=== PATIENT | male | born 1985 | race Caucasian/White ===

== ENCOUNTER 2017-03-08 13:08 | Emergency (ER) | payer SELFPAY ==
[~2017-03-08] VITALS: Ht 180.3 cm; Wt 105.0 kg
[2017-03-08 13:10] VITALS: BP 179/98; PULSE 118; RESP 28; TEMP 98.6; O2SAT 100
--- NOTE | 2017-03-08 13:31 | PD ---
HPI . back and flank pain since this morning (left side) since this am Chief Complaint: Flank/Kidney Pain Time Seen by Provider: 13:31 Travel History International Travel<30 days: No Contact w/Intl Traveler<30days: No Traveled to known affect area: No History of Present Illness HPI 31-year-old male with no past medical history other than tobaccoism here with complaints of left-sided back and flank pain since earlier this morning. Patient says all of a sudden he developed some intense 10/10 back pain. He admits to having some loose stools, but no other issues. He denies any urinary changes. He's never had kidney stones or any problems in the past. He denies any fever, but thinks he may have had some chills. He is accompanied by his significant other and child. PFSH Past Medical History Medical History: Denies Significant Hx Social History Tobacco Use: Yes Allergies-Medications (Allergen,Severity, Reaction): Coded Allergies: No Known Allergies (Unverified , 03/08/17) Reported Meds & Prescriptions Reported Meds & Active Scripts Active Zofran Odt (Ondansetron Odt) 8 Mg Tab 8 Mg SL Q12H PRN Flomax (Tamsulosin HCl) 0.4 Mg Cap 0.4 Mg PO HS Naprosyn (Naproxen) 500 Mg Tab 500 Mg PO BID Lortab (Hydrocodone-Acetaminophen) 5-325 Mg Tab 1 Tab PO Q6H PRN Review of Systems General / Constitutional: No: Fever Eyes: No: Visual changes HENT: No: Headaches Cardiovascular: No: Chest Pain or Discomfort Respiratory: No: Shortness of Breath Gastrointestinal: No: Abdominal Pain Genitourinary: No: Dysuria Musculoskeletal: No: Pain Skin: No Rash Neurologic: No: Weakness Psychiatric: No: Depression Endocrine: No: Polydipsia Hematologic/Lymphatic: No: Easy Bruising Physical Exam Narrative GENERAL: AAO x 3, no acute distress, Well-nourished, well-developed patient. SKIN: Warm and dry. No visible rashes or bruising. HEAD: Normocephalic and atraumatic. EYES: No scleral icterus. No injection or drainage. EOM intact, NECK: Supple, trachea midline. No JVD. CARDIOVASCULAR: Regular rate and rhythm without murmurs, gallops, or rubs. RESPIRATORY: Breath sounds equal bilaterally. No accessory muscle use. No rhonchi or rales. GASTROINTESTINAL: Abdomen soft, non-tender, nondistended. No rebound or guarding EXTREMITIES: No cyanosis or edema. BACK: ++ cva tenderness to left side NEURO: CN II-12 intact, database consultant strength normal b/l, UE and LE 5/5, no focal deficits PSYCH: AAO x 3, normal affect. Data Data Last Documented VS Vital Signs Date Time Temp Pulse Resp B/P Pulse Ox O2 Delivery O2 Flow Rate FiO2 03/08/17 13:53 97 Room Air 03/08/17 13:10 98.6 118 28 179/98 Orders Complete Blood Count With Diff (03/08/17 13:34) Comprehensive Metabolic Panel (03/08/17 13:34) Lipase (03/08/17 13:34) Urinalysis - C+S If Indicated (03/08/17 13:34) Ct Abd/Pel W/O Iv Contrast (03/08/17 13:34) Iv Access Insert/Monitor (03/08/17 13:34) Ecg Monitoring (03/08/17 13:34) Oximetry (03/08/17 13:34) Morphine Inj (Morphine Inj) (03/08/17 13:45) Ondansetron Inj (Zofran Inj) (03/08/17 13:45) Sodium Chloride 0.9% Flush (Ns Flush) (03/08/17 13:45) Electrocardiogram (03/08/17 13:34) Ketorolac Inj (Toradol Inj) (03/08/17 13:45) Labs Laboratory Tests Test 03/08/17 13:45 White Blood Count 10.7 TH/MM3 Red Blood Count 5.14 MIL/MM3 Hemoglobin 16.5 GM/DL Hematocrit 48.3 % Mean Corpuscular Volume 93.9 FL Mean Corpuscular Hemoglobin 32.1 PG Mean Corpuscular Hemoglobin 34.2 % Concent Red Cell Distribution Width 12.7 % Platelet Count 272 TH/MM3 Mean Platelet Volume 7.7 FL Neutrophils (%) (Auto) 82.0 % Lymphocytes (%) (Auto) 10.6 % Monocytes (%) (Auto) 6.6 % Eosinophils (%) (Auto) 0.4 % Basophils (%) (Auto) 0.4 % Neutrophils # (Auto) 8.8 TH/MM3 Lymphocytes # (Auto) 1.1 TH/MM3 Monocytes # (Auto) 0.7 TH/MM3 Eosinophils # (Auto) 0.0 TH/MM3 Basophils # (Auto) 0.0 TH/MM3 CBC Comment DIFF FINAL Differential Comment Urine Color BROWN Urine Turbidity HAZY Urine pH 8.0 Urine Specific [place] 1.029 Urine Protein 30 mg/dL Urine Glucose (UA) NEG mg/dL Urine Ketones NEG mg/dL Urine Occult Blood MOD Urine Nitrite NEG Urine Bilirubin NEG Urine Urobilinogen LESS THAN 2.0 MG/DL Urine Leukocyte Esterase TRACE Urine RBC /hpf Urine WBC 7 /hpf Microscopic Urinalysis Comment CULT NOT INDICATED Sodium Level 140 MEQ/L Potassium Level 4.3 MEQ/L Chloride Level 107 MEQ/L Carbon Dioxide Level 25.8 MEQ/L Anion Gap 7 MEQ/L Blood Urea Nitrogen 14 MG/DL Creatinine 1.13 MG/DL Estimat Glomerular Filtration 75 ML/MIN Rate Random Glucose 127 MG/DL Calcium Level 9.3 MG/DL Total Bilirubin 0.4 MG/DL Aspartate Amino Transf 13 U/L (AST/SGOT) Alanine Aminotransferase 26 U/L (ALT/SGPT) Alkaline Phosphatase 64 U/L Total Protein 7.5 GM/DL Albumin 4.2 GM/DL Lipase 136 U/L [facility] Medical Decision Making Medical Screen Exam Complete: Yes Emergency Medical Condition: Yes Medical Record Reviewed: Yes Differential Diagnosis Nephrolithiasis, pyelonephritis, lumbar radiculopathy Narrative Course 31-year-old male here with what appears to be kidney stones. IV access was obtained. Labs and imaging have been ordered. I provided him with morphine, Zofran and Toradol for his pain. Case discussed with Dr. Bull. Laboratory Tests Test 03/08/17 13:45 White Blood Count 10.7 TH/MM3 Red Blood Count 5.14 MIL/MM3 Hemoglobin 16.5 GM/DL Hematocrit 48.3 % Mean Corpuscular Volume 93.9 FL Mean Corpuscular Hemoglobin 32.1 PG Mean Corpuscular Hemoglobin 34.2 % Concent Red Cell Distribution Width 12.7 % Platelet Count 272 TH/MM3 Mean Platelet Volume 7.7 FL Neutrophils (%) (Auto) 82.0 % Lymphocytes (%) (Auto) 10.6 % Monocytes (%) (Auto) 6.6 % Eosinophils (%) (Auto) 0.4 % Basophils (%) (Auto) 0.4 % Neutrophils # (Auto) 8.8 TH/MM3 Lymphocytes # (Auto) 1.1 TH/MM3 Monocytes # (Auto) 0.7 TH/MM3 Eosinophils # (Auto) 0.0 TH/MM3 Basophils # (Auto) 0.0 TH/MM3 CBC Comment DIFF FINAL Differential Comment Urine Color BROWN Urine Turbidity HAZY Urine pH 8.0 Urine Specific [place] 1.029 Urine Protein 30 mg/dL Urine Glucose (UA) NEG mg/dL Urine Ketones NEG mg/dL Urine Occult Blood MOD Urine Nitrite NEG Urine Bilirubin NEG Urine Urobilinogen LESS THAN 2.0 MG/DL Urine Leukocyte Esterase TRACE Urine RBC /hpf Urine WBC 7 /hpf Microscopic Urinalysis Comment CULT NOT INDICATED Sodium Level 140 MEQ/L Potassium Level 4.3 MEQ/L Chloride Level 107 MEQ/L Carbon Dioxide Level 25.8 MEQ/L Anion Gap 7 MEQ/L Blood Urea Nitrogen 14 MG/DL Creatinine 1.13 MG/DL Estimat Glomerular Filtration 75 ML/MIN Rate Random Glucose 127 MG/DL Calcium Level 9.3 MG/DL Total Bilirubin 0.4 MG/DL Aspartate Amino Transf 13 U/L (AST/SGOT) Alanine Aminotransferase 26 U/L (ALT/SGPT) Alkaline Phosphatase 64 U/L Total Protein 7.5 GM/DL Albumin 4.2 GM/DL Lipase 136 U/L CT scan with [address]. Bull discussed results with the patient. He lives in [place]. We will send him home with medications. He will need to f/ u with his PCP. I personally provided patient with a copy of his CT scan results. I also discussed all of his results with him. Patient verbalized understanding of instructions, questions were answered, and thanked me for their care. I advised them if their condition worsens, please return to the nearest emergency room for further care. Diagnosis Primary Impression: Nephrolithiasis Patient Instructions: General Instructions, Kidney Stones (ED) Additional Instructions: Please return to emergency department if your symptoms return or worsen. Follow up with your primary care provider. Take medications as prescribed. Med/Other Pt SpecificInfo: Prescription(s) given Scripts Ondansetron Odt (Zofran Odt)8 Mg Tab8 Mg SL Q12H PRN (NAUSEA OR VOMITING) #10 TAB Ref 0 Prov:Brionna Bull MD 03/08/17 Tamsulosin (Flomax)0.4 Mg Cap0.4 Mg PO HS #10 CAP Ref 0 Prov:Brionna Bull MD 03/08/17 Naproxen (Naprosyn)500 Mg [id number] Mg PO BID #12 TAB Ref 0 Prov:Brionna Bull MD 03/08/17 Hydrocodone-Acetaminophen (Lortab)5-325 Mg Tab1 Tab PO Q6H PRN (PAIN) #10 TAB Ref 0 Prov:Brionna Bull MD 03/08/17 Disposition: 01 DISCHARGE HOME Condition: Stable Alberta Donovan Mar 08, 2017 13:31
[2017-03-08] MEDS ORDERED: MORPHINE SULFATE 4 MG/ML INJ IV PUSH ONE (13:45)
[2017-03-08] MEDS ORDERED: KETOROLAC TROMETHAMINE 30 MG/ML (IVP) VIAL IV PUSH ONE (13:45)
[2017-03-08] MEDS ORDERED: ONDANSETRON HCL 4 MG/2 ML VIAL IVP ONE (13:45)
[2017-03-08] MEDS ORDERED: SODIUM CHLORIDE 0.9% FLUSH 10 ML FLUSH IV FLUSH PRN (13:45)
[2017-03-08 13:53] VITALS: O2SAT 97
[2017-03-08 14:04] LABS: AUTOMATED NEUTROPHIL # 8.8 TH/MM3 (1.8-7.7); BASOPHIL % 0.4 % (0.0-2.0); EOSINOPHIL % 0.4 % (0.0-4.0); HEMATOCRIT 48.3 % (39.0-51.0); HEMO FLAGS DIFF FINAL; LYMPH % 10.6 % (9.0-44.0); LYMPHOCYTE # 1.1 TH/MM3 (1.0-4.8); MEAN CELL VOLUME 93.9 FL (80.0-100.0); MEAN CORPUSCULAR HEMOGLOBIN 32.1 PG (27.0-34.0); MEAN CORPUSCULAR HGB CONC 34.2 % (32.0-36.0); MONO % 6.6 % (0.0-8.0); PLATELET COUNT 272 TH/MM3 (150-450); RED BLOOD COUNT 5.14 MIL/MM3 (4.50-5.90); RED CELL DISTRIBUTION WIDTH 12.7 % (11.6-17.2); WHITE BLOOD COUNT 10.7 TH/MM3 (4.0-11.0)
[2017-03-08 14:25] LABS: ANION GAP 7 MEQ/L (5-15); AST (GOT) 13 U/L (15-37); BICARBONATE 25.8 MEQ/L (21.0-32.0); BLOOD UREA NITROGEN 14 MG/DL (7-18); BLOOD, URINE MOD (NEG); CHLORIDE 107 MEQ/L (98-107); COMMENT (UR) CULT NOT INDICATED; CULTURE IF INDICATED CULT NOT INDICATED; GLOMERULAR FILTRATION RATE 75 ML/MIN (>89); GLUCOSE,URINE NEG (NEG); KETONE, URINE NEG (NEG); NITRITE,URINE NEG (NEG); POTASSIUM 4.3 MEQ/L (3.5-5.1); SODIUM (NA) 140 MEQ/L (136-145)
[2017-03-08 14:26] LABS: ALT (GPT) 26 U/L (12-78); URINE COLOR BROWN (YELLW/STRAW)
[2017-03-08 14:28] LABS: ALKALINE PHOSPHATASE 64 U/L (45-117); TOTAL BILIRUBIN ADULT 0.4 MG/DL (0.2-1.0)
--- NOTE | 2017-03-08 14:49 | RADRPT ---
EXAM DATE/TIME: 03/08/2017 14:18 [place] COMPARISON: No previous studies available for comparison. INDICATIONS : Left flank pain with nausea, vomiting and diarrhea today. ORAL CONTRAST: No oral contrast ingested. RADIATION DOSE: 8.53 CTDIvol (mGy) MEDICAL HISTORY : None SURGICAL HISTORY : None. ENCOUNTER: Initial ACUITY: 1 day PAIN SCALE: 7/10 LOCATION: Left flank TECHNIQUE: Volumetric scanning of the abdomen and pelvis was performed. Using automated exposure control and ad justment of the mA and/or kV according to patient size, radiation dose was kept as low as reasonably achievable to obtain optimal diagnostic quality images. DICOM format image data is available electro nically for review and comparison. FINDINGS: LOWER LUNGS: The visualized lower lungs are clear. LIVER: Homogeneous density without lesion. There is no dilation of the biliary tree. No calcified gallston es. SPLEEN: Normal size without lesion. PANCREAS: Within normal limits. KIDNEYS: There is a 4 mm stone at the left ureteropelvic junction region. Minimal calyceal distention. A 2 mm nonobstructing stone is seen of the left upper pole and there are several 3 mm nonobstructing stones of the right mid zone and lower pole. ADRENAL GLANDS: Within normal limits. VASCULAR: There is no aortic aneurysm. BOWEL/MESENTERY: The stomach, small bowel, and colon demonstrate no acute abnormality. There is no free intraperitone al air or fluid. ABDOMINAL WALL: Within normal limits. RETROPERITONEUM: There is no lymphadenopathy. BLADDER: No wall thickening or mass. REPRODUCTIVE: Within normal limits. INGUINAL: There is no lymphadenopathy or hernia. MUSCULOSKELETAL: No acute bony abnormality demonstrated. CONCLUSION: 4 mm minimally obstructing stone of the left ureteropelvic junction. A few scattered sub-3 mm nonobst ructing stones are seen of both kidneys. Angel Peterson MD on March 08, 2017 at 14:43 Board Certified Radiologist. This report was verified electronically.
[2017-03-08] MEDS ORDERED: HYDR-3533 PO (14:57)
[2017-03-08] MEDS ORDERED: ZOFR8TAB4 SL (14:57)
[2017-03-08] MEDS ORDERED: TAMS5CAP PO (14:57)
[2017-03-08] MEDS ORDERED: NAPR500 PO (14:57)
--- NOTE | 2017-03-08 15:08 | PD ---
Data Data Last Documented VS Vital Signs Date Time Temp Pulse Resp B/P Pulse Ox O2 Delivery O2 Flow Rate FiO2 03/08/17 13:53 97 Room Air 03/08/17 13:10 98.6 118 28 179/98 Orders Complete Blood Count With Diff (03/08/17 13:34) Comprehensive Metabolic Panel (03/08/17 13:34) Lipase (03/08/17 13:34) Urinalysis - C+S If Indicated (03/08/17 13:34) Ct Abd/Pel W/O Iv Contrast (03/08/17 13:34) Iv Access Insert/Monitor (03/08/17 13:34) Ecg Monitoring (03/08/17 13:34) Oximetry (03/08/17 13:34) Morphine Inj (Morphine Inj) (03/08/17 13:45) Ondansetron Inj (Zofran Inj) (03/08/17 13:45) Sodium Chloride 0.9% Flush (Ns Flush) (03/08/17 13:45) Electrocardiogram (03/08/17 13:34) Ketorolac Inj (Toradol Inj) (03/08/17 13:45) Labs Laboratory Tests Test 03/08/17 13:45 White Blood Count 10.7 TH/MM3 Red Blood Count 5.14 MIL/MM3 Hemoglobin 16.5 GM/DL Hematocrit 48.3 % Mean Corpuscular Volume 93.9 FL Mean Corpuscular Hemoglobin 32.1 PG Mean Corpuscular Hemoglobin 34.2 % Concent Red Cell Distribution Width 12.7 % Platelet Count 272 TH/MM3 Mean Platelet Volume 7.7 FL Neutrophils (%) (Auto) 82.0 % Lymphocytes (%) (Auto) 10.6 % Monocytes (%) (Auto) 6.6 % Eosinophils (%) (Auto) 0.4 % Basophils (%) (Auto) 0.4 % Neutrophils # (Auto) 8.8 TH/MM3 Lymphocytes # (Auto) 1.1 TH/MM3 Monocytes # (Auto) 0.7 TH/MM3 Eosinophils # (Auto) 0.0 TH/MM3 Basophils # (Auto) 0.0 TH/MM3 CBC Comment DIFF FINAL Differential Comment Urine Color BROWN Urine Turbidity HAZY Urine pH 8.0 Urine Specific [place] 1.029 Urine Protein 30 mg/dL Urine Glucose (UA) NEG mg/dL Urine Ketones NEG mg/dL Urine Occult Blood MOD Urine Nitrite NEG Urine Bilirubin NEG Urine Urobilinogen LESS THAN 2.0 MG/DL Urine Leukocyte Esterase TRACE Urine RBC /hpf Urine WBC 7 /hpf Microscopic Urinalysis Comment CULT NOT INDICATED Sodium Level 140 MEQ/L Potassium Level 4.3 MEQ/L Chloride Level 107 MEQ/L Carbon Dioxide Level 25.8 MEQ/L Anion Gap 7 MEQ/L Blood Urea Nitrogen 14 MG/DL Creatinine 1.13 MG/DL Estimat Glomerular Filtration 75 ML/MIN Rate Random Glucose 127 MG/DL Calcium Level 9.3 MG/DL Total Bilirubin 0.4 MG/DL Aspartate Amino Transf 13 U/L (AST/SGOT) Alanine Aminotransferase 26 U/L (ALT/SGPT) Alkaline Phosphatase 64 U/L Total Protein 7.5 GM/DL Albumin 4.2 GM/DL Lipase 136 U/L MDM Supervised Visit with NICANOR: Yes Narrative Course The history, exam, and medical decision-making in the associated midlevel provider note were completed with my assistance. I reviewed and agree with the findings presented. I attest that I had a [id number] encounter with the patient on the same day, and personally performed and documented my assessment and findings in the medical record. *My assessment and Findings: This is a 31-year-old male who presents to the emergency department with left-sided flank pain and vomiting. CT abdomen and pelvis demonstrates a 4 mm stone at the UVJ. I expect it'll pass. He feels much better after IV fluids and morphine. Patient will be discharged home. Diagnosis Primary Impression: Nephrolithiasis Referrals: Primary Care Physician call for appointment Patient Instructions: General Instructions, Narcotic given in the ED, Kidney Stones (ED) Departure Forms: Tests/Procedures Additional Instruction: Please return to emergency department if your symptoms return or worsen. Follow up with your primary care provider. Take medications as prescribed. Scripts Ondansetron Odt (Zofran Odt)8 Mg Tab8 Mg SL Q12H PRN (NAUSEA OR VOMITING) #10 TAB Ref 0 Prov:Brionna Bull MD 03/08/17 Tamsulosin (Flomax)0.4 Mg Cap0.4 Mg PO HS #10 CAP Ref 0 Prov:Brionna Bull MD 03/08/17 Naproxen (Naprosyn)500 Mg [id number] Mg PO BID #12 TAB Ref 0 Prov:Highet,Brionna H. MD 03/08/17 Hydrocodone-Acetaminophen (Lortab)5-325 Mg Tab1 Tab PO Q6H PRN (PAIN) #10 TAB Ref 0 Prov:Brionna Bull MD 03/08/17 Disposition: 01 DISCHARGE HOME Condition: Stable Brionna Bull MD Mar 08, 2017 15:08
[2017-03-08 15:49] VITALS: BP 108/68
--- NOTE | 2017-03-09 16:20 | EKG ---
Date Performed: 03/08/2017 Time Performed: 14:00:02 PTAGE: 31 years EKG: Sinus rhythm MODERATE INTRAVENTRICULAR CONDUCTION DELAY BORDERLINE ECG NO PREVIOUS TRACING DOCTOR: Horacio Whatley Interpretating Date/Time 03/09/2017 16:18:32
== END 2017-03-08 15:50 | disposition home or self-care (01) ==
LOC: NEPE 13:08
DX: N20.2 Calculus of kidney with calculus of ureter (principal); Z72.0 Tobacco use
CPT/HCPCS: 74176; 80053; 81001; 83690; 85025; 93005; 96374; 96375; 99285; J1885; J2270; J2405